=== PATIENT | male | born 1985 | race American Indian/Alaskan Native ===

== ENCOUNTER 2016-10-11 01:05 | Emergency (ER) | payer MEDICARE, OTHER ==
[2016-10-11 01:05] VITALS: BMI 29.2
--- NOTE | 2016-10-11 01:26 | C.PDOC ---
History Of Present Illness 31 year old male who presents to the ER with a complaint of multiple itchy insect bites. Patient states he is staying at an airbnb and found bedbugs. Patient is concerned and is requesting to be evaluated; denies fever, difficulty swallowing, or difficulty breathing. Chief Complaint (Nursing): Abnormal Skin Integrity History Per: Patient History/Exam Limitations: no limitations Onset/Duration Of Symptoms: Hrs Current Symptoms Are (Timing): Still Present Quality Of Symptoms: Itching Recent travel outside of the [place]: No Past Medical History Reviewed: Historical Data, Nursing Documentation, Vital Signs Vital Signs: Last Vital Signs Temp 98 F 10/11/16 02:07 Pulse 70 10/11/16 02:07 Resp 16 10/11/16 02:07 BP 118/69 10/11/16 02:07 Pulse Ox 98 10/11/16 02:07 - Medical History PMH: No Chronic Diseases Surgical History: No Surg Hx Family History: States: Unknown Family Hx - Social History Hx Alcohol Use: Yes (GLASS OF WINE 2 X A WEEK) Hx Substance Use: No Review Of Systems Constitutional: Negative for: Fever, Chills ENT: Negative for: Mouth Swelling, Throat Swelling Skin: Positive for: Other (Insect bites) Physical Exam - Physical Exam Appears: Non-toxic Skin: Warm, Dry, Other (Multiple insect bite like duncan throughout body, no signs of swelling or infection.) Head: Atraumatic, Normacephalic Oral Mucosa: Moist Throat: Normal, No Other (Swelling) Chest: Symmetrical, No Tenderness Cardiovascular: Rhythm Regular, No Murmur Respiratory: Normal Breath Sounds, No Rales, No Rhonchi, No Wheezing Neurological/Psych: Oriented x3, Normal Speech, Normal Cognition ED Course And Treatment O2 Sat by Pulse Oximetry: 99 (Room air) Pulse Ox Interpretation: Normal Progress Note: Benadryl administered. On reevaluation, patient feels itchiness has improved, will discharge home with Rx and advise to follow up with PMD. Disposition - Disposition Disposition: HOME/ ROUTINE Disposition Time: 01:40 Condition: STABLE Additional Instructions: Follow up with your PMD within 1-2 days. Return to ED if feel worse. Prescriptions: DiphenhydrAMINE [Benadryl] 25 mg PO .Q4-6 H #30 cap Permethrin 5% [Permethrin 5% Cream] 1 applic TOP ONCE #1 tube Instructions: Bed Bugs (ED) Forms: [facility] ([employer]) - Clinical Impression Clinical Impression: Bed bug bite - Scribe Statement The provider has reviewed the documentation as recorded by the Scribe Gus Hernandez All medical record entries made by the Scribe were at my direction and personally dictated by me. I have reviewed the chart and agree that the record accurately reflects my personal performance of the history, physical exam, medical decision making, and the department course for this patient. I have also personally directed, reviewed, and agree with the discharge instructions and disposition.
[2016-10-11 02:08] VITALS: BP 118/69; PULSE 70; RESP 16; TEMP 98
[2016-10-11 02:57] VITALS: O2SAT 99
== END 2016-10-11 02:08 | disposition home or self-care (01) ==
LOC: C.ER 01:05
DX: T14.8 Other injury of unspecified body region (principal); W57.XXXA Bitten or stung by nonvenomous insect and other nonvenomous arthropods, initial encounter